=== PATIENT | male | born 1940 | race Caucasian/White ===

== ENCOUNTER → 2018-07-04 09:28 | Outpatient (CLI) | payer OTHER, SELFPAY ==
--- NOTE | 2018-07-04 | DI.RAD.S_ITS ---
PROCEDURE: XR HAND LT 2V INDICATIONS: OSTEOARTHRITUS TECHNIQUE: 3 views of the hand(s) acquired. COMPARISON: [facility], CR, XR HAND RT 2V, 07/04/2018, 9:14. [facility], CR, HAND 3V LEFT, 08/03/2011, 12:29. FINDINGS: Bones: No fractures or dislocations. There is moderate to severe IP and DIP joints space narrowing most notable at the first, second and third digits. First MCP joint space narrowing is also present. There is subchondral sclerosis and periarticular osteophytes also present. There has been mild interval progression compared to prior exam. Small areas of subchondral cyst versus erosions are noted. Although this left and right sides are affected, the left side is slightly less severe. Soft tissues: No suspicious soft tissue calcifications. IMPRESSION: IP and DIP joints space narrowing, subchondral sclerosis and periarticular osteophytes as above most suggestive of arthritis. Mild interval progression is noted. Dictated by: Huyen Kruse M.D. on 07/04/2018 at 13:11 Approved by: Huyen Kruse M.D. on 07/04/2018 at 13:15
--- NOTE | 2018-07-04 | DI.RAD.S_ITS ---
PROCEDURE: XR HAND RT 2V INDICATIONS: OSTEOARTHRITUS TECHNIQUE: 3 views of the hand(s) acquired. COMPARISON: [facility], CR, XR HAND LT 2V, 07/04/2018, 9:14. [facility], CR, HAND 3V RIGHT, 08/03/2011, 12:29. [facility], CR, HAND 3V LEFT, 08/03/2011, 12:29. FINDINGS: Bones: No fractures or dislocations. There is severe PIP and IP joint space narrowing most notable in the first, second and third digits, progressive compared to prior exam. Areas of subchondral sclerosis and periarticular osteophytes are present most significant in the second and third digits. First MCP joint space narrowing is also present, slightly progressive. There is end plate irregularity particularly of the second DIP joint suggestive of small subchondral cysts versus erosions, progressive compared to prior exam. Overall appearance appears slightly worse when compared to the left side. Soft tissues: No suspicious soft tissue calcifications. IMPRESSION: Degenerative changes particularly within the first and third digits, progressive compared to prior exam and most consistent with arthritis. Dictated by: Huyen Kruse M.D. on 07/04/2018 at 13:08 Approved by: Huyen Kruse M.D. on 07/04/2018 at 13:11
== END ==
PROVIDERS: PCP Physician Assistant; Visit Provider Physician Assistant
DX: M19.041 Primary osteoarthritis, right hand (principal); M19.042 Primary osteoarthritis, left hand
CPT/HCPCS: 73120

== ENCOUNTER → 2020-03-30 15:02 | Outpatient (CLI) | payer MEDICARE, SELFPAY ==
--- NOTE | 2020-03-30 | DI.US.S_ITS ---
PROCEDURE: US PERIPH VENOUS LOW EXTREM LT INDICATIONS: LEFT LEG PAIN AND SWELLING TECHNIQUE: Real-time imaging, as well as color and pulse Doppler interrogation, were performed of the lower extremity deep veins from the inguinal ligament to the popliteal fossa. COMPARISON: None. FINDINGS: The common femoral, femoral and popliteal veins are normally compressible, and free of intraluminal thrombus. Color and pulse Doppler demonstrate normal phasic intraluminal flow. There is normal augmentation response to distal compression maneuver. IMPRESSION: No DVT found. Dictated by: Krystian Camp M.D. on 03/30/2020 at 16:16 Approved by: Krystian Camp M.D. on 03/30/2020 at 16:16
== END ==
PROVIDERS: PCP Physician Assistant; Referring Provider Physician Assistant; Visit Provider Physician Assistant
DX: M79.605 Pain in left leg (principal); M79.89 Other specified soft tissue disorders
CPT/HCPCS: 93971

== ENCOUNTER → 2020-04-28 10:45 | Outpatient (CLI) | payer MEDICARE, SELFPAY ==
[2020-04-28 11:55] LABS: Add Manual Diff / Slide Review NO; Basophils Absolute Auto 100 /uL (0-100); Basophils Percent Auto 1.1 % (0-2); Eosinophils Absolute Auto 200 /uL (0-450); Hematocrit 39.6 % (41-53); Hemoglobin 13.5 g/dL (13.5-17.5); Lymphocytes Absolute Auto 2700 /uL (1100-4500); Lymphocytes Percent Auto 39.6 % (25-40); Mean Corpuscular Hemoglobin 32.4 PG (26-34); Mean Corpuscular Volume 95.1 fL (80-100); Monocytes Absolute Auto 800 /uL (0-900); Monocytes Percent Auto 12.1 % (3-14); Neutrophils Absolute Auto 3100 /uL (1500-7000); Neutrophils Percent Auto 44.2 % (50-75); Platelet Count 189 X10^3/uL (150-400); Red Blood Cell Count 4.16 X10^6/uL (4.5-5.9); Red Cell Distribution Width 14.3 % (11.6-14.8); White Blood Cell Count 6.9 X10^3/uL (4.5-11.0)
[2020-04-28 12:06] LABS: D Dimer < 200 ng/mL (<230)
[2020-04-28 12:48] LABS: Alanine Aminotransferase 39 IU/L (<50); Albumin 4.3 g/dL (3.5-5.0); Albumin Globulin Ratio 1.5 (1.0-2.8); Alkaline Phosphatase 83 U/L (38-126); Aspartate Aminotransferase 41 IU/L (17-59); BUN Creatinine Ratio 21.1 (6-22); Bilirubin Total 0.6 mg/dL (0.2-1.3); Blood Urea Nitrogen 15 mg/dL (9-20); Calcium 9.2 mg/dL (8.4-10.2); Carbon Dioxide 25 mmol/L (22-32); Chloride 103 mmol/L (98-107); Estimated Glomerular Filt Rate > 60.0 mL/min (>60); Globulin 2.9 g/dL (1.7-4.1); Glucose 82 mg/dL (80-110); HEMOLYSIS < 15 (0-50); Potassium 4.3 mmol/L (3.4-5.1); Sodium 135 mmol/L (137-145); Total Protein 7.2 g/dL (6.3-8.2)
[2020-04-28 13:08] LABS: TSH w/ Reflex to FT4 0.99 uIU/mL (0.47-4.68)
[2020-04-28 13:27] LABS: Vitamin B12 775 pg/mL (239-931)
[2020-04-29 04:36] LABS: RPR Screen Non Reactive (Non Reactive)
[2020-04-30 09:39] LABS: Alpha-1-Globulin 0.2 g/dL (0.0-0.4); Alpha-2-Globulin 0.8 g/dL (0.4-1.0); Gamma Globulin 1.1 g/dL (0.4-1.8); Globulin Total 2.8 g/dL (2.2-3.9); Protein, Total 6.8 g/dL (6.0-8.5)
== END ==
PROVIDERS: PCP Internal Medicine; Referring Provider Internal Medicine; Visit Provider Internal Medicine
DX: R60.9 Edema, unspecified (principal); R41.3 Other amnesia
CPT/HCPCS: 36415; 80053; 82607; 84155; 84165; 84443; 85025; 85379; 86592

== ENCOUNTER → 2020-08-07 07:02 | Outpatient (CLI) | payer MEDICARE, SELFPAY ==
[2020-08-07 07:13] LABS: Bacteria Urine None Seen; RBC Urine None Seen (0-5/HPF); WBC Urine None Seen (0-5/HPF)
[2020-08-07 07:36] LABS: Add Manual Diff / Slide Review NO; Basophils Absolute Auto 100 /uL (0-100); Basophils Percent Auto 2.2 % (0-2); D Dimer 212 ng/mL (<230); Eosinophils Absolute Auto 200 /uL (0-450); Eosinophils Percent Auto 3.4 % (2-4); Hemoglobin 14.1 g/dL (13.5-17.5); Lymphocytes Absolute Auto 2500 /uL (1100-4500); Lymphocytes Percent Auto 38.3 % (25-40); Mean Corpuscular HGB Conc 33.7 % (30-36); Mean Corpuscular Hemoglobin 32.2 PG (26-34); Mean Corpuscular Volume 95.7 fL (80-100); Monocytes Absolute Auto 700 /uL (0-900); Monocytes Percent Auto 10.4 % (3-14); Neutrophils Absolute Auto 3000 /uL (1500-7000); Neutrophils Percent Auto 45.7 % (50-75); Platelet Count 190 X10^3/uL (150-400); Red Blood Cell Count 4.39 X10^6/uL (4.5-5.9); Red Cell Distribution Width 14.7 % (11.6-14.8); White Blood Cell Count 6.5 X10^3/uL (4.5-11.0)
[2020-08-07 07:46] LABS: Alanine Aminotransferase 51 IU/L (<50); Albumin 4.3 g/dL (3.5-5.0); Albumin Globulin Ratio 1.3 (1.0-2.8); Alkaline Phosphatase 85 U/L (38-126); Aspartate Aminotransferase 48 IU/L (17-59); BUN Creatinine Ratio 21.3 (6-22); Bilirubin Total 0.9 mg/dL (0.2-1.3); Blood Urea Nitrogen 16 mg/dL (9-20); C-Reactive Protein Quant < 0.5 mg/dL (<1.0); Calcium 9.4 mg/dL (8.4-10.2); Carbon Dioxide 25 mmol/L (22-32); Chloride 107 mmol/L (98-107); Estimated Glomerular Filt Rate > 60.0 mL/min (>60); Globulin 3.4 g/dL (1.7-4.1); Glucose 123 mg/dL (80-110); HEMOLYSIS < 15 (0-50); Potassium 4.3 mmol/L (3.4-5.1); Sodium 138 mmol/L (137-145); Total Protein 7.7 g/dL (6.3-8.2)
[2020-08-07 07:57] LABS: Erythrocyte Sedimentation Rate 8 MM/HR (0-15)
[2020-08-07 09:29] LABS: Appearance Urine UA CLEAR; Bilirubin Urine UA NEGATIVE (NEGATIVE); Color Urine UA YELLOW; Glucose Urine UA NEGATIVE (Negative); Ketones Urine UA NEGATIVE (NEGATIVE); Leukocyte Esterase Urine UA NEGATIVE (NEGATIVE); Nitrite Urine UA NEGATIVE (Negative); Occult Blood Urine UA NEGATIVE (Negative); Protein Urine UA NEGATIVE (Negative); Specific Gravity Urine UA 1.025 (1.000-1.035); Urobilinogen Urine UA 0.2 E.U./dL (0.2)
[2020-08-07 09:50] LABS: Culture Indicated Urine Cult Not Indicated; Urine Comments Microscopic Normal
[2020-08-08 07:49] LABS: PSA Ultrasensitive <0.014 ng/mL (0.000-4.000)
== END ==
PROVIDERS: PCP Internal Medicine; Referring Provider Internal Medicine; Visit Provider Internal Medicine
DX: R10.32 Left lower quadrant pain (principal)
CPT/HCPCS: 36415; 80053; 81001; 84153; 85025; 85379; 85651; 86140

== ENCOUNTER 2020-08-07 15:54 | Emergency (ER) | payer MEDICARE, SELFPAY ==
[2020-08-07] VITALS (9 sets, daily range): BP systolic 144–181; BP diastolic 65–76; PULSE 54–64; RESP 14–24; TEMP 36.6; O2SAT 95–99; BMI 31.0
--- NOTE | 2020-08-07 16:14 | DI.RAD.S_ITS ---
PROCEDURE: XR CHEST 1V INDICATIONS: CHEST PAIN TECHNIQUE: One view of the chest was acquired. COMPARISON: [facility], CR, XR CHEST 1 VIEW, 01/12/2020, 6:19. FINDINGS: Surgical changes and devices: None. Lungs and pleura: Interstitial prominence. No pleural effusions or pneumothorax. Mediastinum: Mediastinal contours appear normal. Heart is enlarged. Bones and chest wall: No suspicious bony lesions. Overlying soft tissues appear unremarkable. IMPRESSION: 1. Cardiomegaly. 2. Interstitial prominence which could be due to pulmonary edema or atypical/viral pneumonia. Dictated by: Olivia Gastelum MD, PhD on 08/07/2020 at 17:02 Approved by: Olivia Gastelum MD, PhD on 08/07/2020 at 17:04
[2020-08-07 16:23] LABS: Add Manual Diff / Slide Review NO; Basophils Absolute Auto 100 /uL (0-100); Basophils Percent Auto 1.1 % (0-2); Eosinophils Absolute Auto 200 /uL (0-450); Eosinophils Percent Auto 2.1 % (2-4); Hematocrit 41.5 % (41-53); Lymphocytes Absolute Auto 3100 /uL (1100-4500); Lymphocytes Percent Auto 37.1 % (25-40); Mean Corpuscular HGB Conc 33.7 % (30-36); Mean Corpuscular Hemoglobin 32.3 PG (26-34); Mean Corpuscular Volume 95.9 fL (80-100); Monocytes Absolute Auto 900 /uL (0-900); Monocytes Percent Auto 10.6 % (3-14); Neutrophils Absolute Auto 4100 /uL (1500-7000); Neutrophils Percent Auto 49.1 % (50-75); Platelet Count 187 X10^3/uL (150-400); Red Blood Cell Count 4.33 X10^6/uL (4.5-5.9); Red Cell Distribution Width 14.5 % (11.6-14.8); White Blood Cell Count 8.4 X10^3/uL (4.5-11.0)
[2020-08-07 16:27] LABS: Alanine Aminotransferase 54 IU/L (<50); Albumin 4.4 g/dL (3.5-5.0); Albumin Globulin Ratio 1.4 (1.0-2.8); Alkaline Phosphatase 80 U/L (38-126); Aspartate Aminotransferase 53 IU/L (17-59); BUN Creatinine Ratio 19.8 (6-22); Bilirubin Total 0.7 mg/dL (0.2-1.3); Blood Urea Nitrogen 19 mg/dL (9-20); Carbon Dioxide 24 mmol/L (22-32); Chloride 105 mmol/L (98-107); Creatine Kinase 161 U/L (55-170); Estimated Glomerular Filt Rate > 60.0 mL/min (>60); Globulin 3.2 g/dL (1.7-4.1); Glucose 119 mg/dL (80-110); HEMOLYSIS < 15 (0-50); Lipase 66 U/L (23-300); Potassium 3.8 mmol/L (3.4-5.1); Sodium 137 mmol/L (137-145); Total Protein 7.6 g/dL (6.3-8.2)
[2020-08-07] MEDS: SODIUM CHLORIDE 0.9% 1,000 ML 150 ML IV (16:28)
--- NOTE | 2020-08-07 16:29 | ED.CHESTPAIN ---
HPI - Chest Pain General Chief Complaint: Chest Pain Stated Complaint: chest pains Time Seen by Provider: 08/07/20 16:06 Source: patient Mode of arrival: Ambulatory Limitations: no limitations History of Present Illness HPI narrative: The patient is a 80-year-old male with history of coronary artery disease presenting with right-sided chest pain. He says he has taken 2 doses of Augmentin for what I gather is diverticulitis but he does not know the words he says he has a dull aching pain on the right side of his chest which comes and goes lasting briefly. He denies any shortness of breath or heart palpitations. It started this morning, he thinks it is related to the Augmentin has been taking. MD complaint: chest pain Duration: intermittent Pain radiation: none Relieving factors: nothing Related Data Home Medications Medication Instructions Recorded Confirmed Antihistamine 10 mg PO DAILY 11/04/19 ascorbic acid (vitamin C) 1,000 mg 1 gram PO DAILY tab 11/04/19 11/04/19 tablet aspirin 81 mg tablet,delayed 81 mg PO DAILY 11/04/19 11/04/19 release cholecalciferol (vitamin D3) 25 25 mcg PO DAILY 11/04/19 11/04/19 mcg (1,000 unit) capsule glucosamine-chondroitin 250 mg-200 1 tab PO QPC tab 11/04/19 11/04/19 mg tablet bhcxdfgkltsw-sfkacluv-ogqtab tablet 1 tab PO DAILY 11/04/19 11/04/19 nitroglycerin 0.4 mg sublingual 0.4 mg SL ONCE 11/04/19 11/04/19 tablet Previous Rx's Medication Instructions Recorded amoxicillin 875 mg-potassium 1 tab PO BID #10 tab 11/04/19 clavulanate 125 mg tablet trazodone 50 mg tablet 50 mg PO BEDTIME PRN #90 tab 12/05/19 atorvastatin 40 mg tablet 40 mg PO DAILY #90 tab 12/20/19 metoprolol succinate 25 mg 25 mg PO DAILY #90 tab 12/20/19 tablet,extended release 24 hr Allergies Allergy/AdvReac Type Severity Reaction Status Date / Time meclizine [From Antivert] Allergy Verified 08/07/20 16:07 Review of Systems Review of Systems Narrative: GENERAL: Denies chills, fatigue, malaise, fever, sweats, travel HEENT: Denies sinus pain, ear pain, sore throat, difficulty swallowing, neck pain RESPIRATORY: Denies dyspnea, cough, wheezing, hemoptysis, sputum. CARDIOVASCULAR: Denies chest pain, palpitations, orthopnea, edema GASTROINTESTINAL: Denies nausea, vomiting, abdominal pain, diarrhea, constipation, melena. : Denies dysuria, frequency, incontinence, hematuria, urinary retention, flank pain. MUSCULOSKELETAL: Denies weakness, joint pain, or bony pain SKIN: No rash, no erythema, no pruritus NEUROLOGIC: Denies weakness, dizziness, headache, numbness, change in speech, confusion PSYCHIATRIC: No concerning psychosocial issues. 12 point review of systems is negative except for those stated above and HPI Patient History Medical History (Updated 08/07/20 @ 19:03 by Nia Womack DO) Chicken pox (~1943) Coronary artery disease Gout (~1969) Hearing loss Hemorrhoids History of heart attack Hyperlipidemia Measles (~1943) Mumps (~1943) Prostate cancer Skin cancer, basal cell Skin lesion Vision disorder Surgical History (Updated 11/14/19 @ 19:30 by Katie Chinchilla) Anesthesia Back pain with history of spinal surgery History of coronary artery stent placement History of ear surgery (~04/2019) History of prostatectomy History of surgery Family History (Updated 11/14/19 @ 19:30 by Katie Chinchilla) Mother Stroke Father No problems noted. Social History Smoking Status: Never smoker second hand exposure: No alcohol intake: never substance use type: does not use Smoking Status: Never smoker alcohol intake frequency: a few times a week Substance Use Type: does not use Exam Initial Vital Signs Initial Vital Signs: Vital Signs Temperature 97.8 F 08/07/20 16:07 Pulse Rate 61 08/07/20 16:07 Respiratory Rate 24 08/07/20 16:07 Blood Pressure 181/76 H 08/07/20 16:07 Pulse Oximetry 96 08/07/20 16:07 GENERAL: Pleasant alert well-appearing male and in no acute distress. HEENT: Head atraumatic,EOMI, pupils reactive, face symmetric, moist mucous membranes CARDIOVASCULAR: Regular rate and rhythm without murmurs, rubs or gallops. Pain is not reproducible with palpation RESPIRATORY: Breath sounds equal bilaterally, no wheezes rales or rhonchi. ABDOMEN: Soft, nontender. Normoactive bowel sounds all 4 quadrants. No guarding or rebound. : No CVA tenderness EXTREMITIES: Normal range of motion, no clubbing or edema. Neurovascularly intact NEUROLOGICAL: Alert and oriented x4.Normal gait and speech. Cranial nerves II through XII grossly intact. SKIN: Warm, dry, no laceration, no petechiae, no rashes or lesions. Course Orders Ordered: ED Orders 08/07/20 15:59 EKG-12 Lead Stat 08/07/20 16:10 Complete Blood Count AUTO DIFF Stat Comprehensive Metabolic Panel Stat Lipase Stat Troponin & CK Cardiac Panel Stat 08/07/20 16:14 XR chest 1V Stat 08/07/20 17:25 US periph venous low extrem lt Stat Sodium Chloride (Normal Saline 0.9%) 1,000 mls @ 150 mls/hr IV CONT MITA Last Admin: 08/07/20 16:28 Dose: 150 mls/hr Documented by: NICOLE Vital Signs Vital signs: Vital Signs - 8 hr 08/07/20 16:07 08/07/20 16:40 08/07/20 17:00 Temperature 97.8 F Pulse Rate 61 55 L 55 L Respiratory Rate 24 24 22 Blood Pressure 181/76 H Pulse Oximetry 96 96 97 08/07/20 17:01 08/07/20 17:30 08/07/20 17:31 Temperature Pulse Rate 55 L 64 62 Respiratory Rate 21 20 18 Blood Pressure 149/65 H 159/68 H Pulse Oximetry 95 99 99 08/07/20 18:00 08/07/20 18:01 Temperature Pulse Rate 56 L 63 Respiratory Rate 14 20 Blood Pressure 160/68 H Pulse Oximetry 97 97 MDM - Chest Pain Lab Data Attestation: I reviewed the patient's lab results. Result diagrams: 08/07/20 16:10 08/07/20 16:10 Labs: Lab Results 08/07/20 08/07/20 Range/Units 16:10 16:10 WBC 8.4 (4.5-11.0) X10^3/uL RBC 4.33 L (4.5-5.9) X10^6/uL Hgb 14.0 (13.5-17.5) g/dL Hct 41.5 (41-53) % MCV 95.9 (80-100) fL MCH 32.3 (26-34) PG MCHC 33.7 (30-36) % RDW 14.5 (11.6-14.8) % Plt Count 187 (150-400) X10^3/uL Neut % (Auto) 49.1 L (50-75) % Lymph % (Auto) 37.1 (25-40) % [place] % (Auto) 10.6 (3-14) % Eos % (Auto) 2.1 (2-4) % Baso % (Auto) 1.1 (0-2) % Neut # (Auto) 4100 (8698-9060) /uL Lymph # (Auto) 3100 (1969-2126) /uL [place] # (Auto) 900 (0-900) /uL Eos # (Auto) 200 (0-450) /uL Baso # (Auto) 100 (0-100) /uL Sodium 137 (137-145) mmol/L Potassium 3.8 (3.4-5.1) mmol/L Chloride 105 (98-107) mmol/L Carbon Dioxide 24 (22-32) mmol/L BUN 19 (9-20) mg/dL Creatinine 0.96 (0.66-1.25) mg/dL Estimated GFR > 60.0 (>60) mL/min BUN/Creatinine Ratio 19.8 (6-22) Glucose 119 H (80-110) mg/dL Calcium 9.0 (8.4-10.2) mg/dL Total Bilirubin 0.7 (0.2-1.3) mg/dL AST 53 (17-59) IU/L ALT 54 H (<50) IU/L Alkaline Phosphatase 80 (38-126) U/L Total Creatine Kinase 161 (55-170) U/L CK-MB (CK-2) 2.86 H (<2.37) ng/mL CK-MB (CK-2) Rel Index 1.8 (1.5-5.0) % Troponin I < 0.012 (0.01-0.034) ng/mL Total Protein 7.6 (6.3-8.2) g/dL Albumin 4.4 (3.5-5.0) g/dL Globulin 3.2 (1.7-4.1) g/dL Albumin/Globulin Ratio 1.4 (1.0-2.8) Lipase 66 (23-300) U/L Imaging Data Chest x-ray: Radiologist's Impression: PROCEDURE: XR CHEST 1V INDICATIONS: CHEST PAIN TECHNIQUE: One view of the chest was acquired. COMPARISON: [facility], CR, XR CHEST 1 VIEW, 01/12/2020, 6:19. FINDINGS: Surgical changes and devices: None. Lungs and pleura: Interstitial prominence. No pleural effusions or pneumothorax. Mediastinum: Mediastinal contours appear normal. Heart is enlarged. Bones and chest wall: No suspicious bony lesions. Overlying soft tissues appear unremarkable. IMPRESSION: 1. Cardiomegaly. 2. Interstitial prominence which could be due to pulmonary edema or atypical/viral pneumonia. Dictated by: Olivia Gastelum MD, PhD on 08/07/2020 at 17:02 ECG Data Attestation: I personally reviewed and interpreted this ECG as follows: Prior ECG tracings: available for review Interpretation: Normal sinus rhythm rate 59 p.r. interval 312 QRS [address] changes similar to previous EKG first-degree AV block was also noted in 2015 MDM Narrative Medical decision making narrative: The patient has been having swelling of the left leg as well DVT study is negative. Pain is been off and on lasting only for seconds. Pain is been ongoing throughout the day troponin is negative. He is taking Augmentin for colitis. At this time I recommend he continue taking Augmentin he does not have any anaphylactic or adverse reactions to the medication. I did discuss with him that he needs to return if his pain is worsened Discharge Plan Departure Patient Disposition: Home Clinical Impression: Atypical chest pain Activity Restrictions/Additional Instructions: *You have been diagnosed with atypical chest pain *What to do: At this time continue your antibiotic it is not related to your chest pain. At this time I do not believe her chest discomfort to be related to your heart however if it should change or worsen in any way please return to the ER without hesitation *Continue to take medications as directed *Follow up with your primary care provider in 2-3 days *Return to ER if you should have increasing chest pain or change in chest pain, shortness of breaths or any new, worsening or concerning symptoms Prescriptions: No Action trazodone 50 mg tablet 50 mg PO BEDTIME PRN (Reason: insomnia) Qty: 90 RF: 1 atorvastatin 40 mg tablet 40 mg PO DAILY Qty: 90 RF: 3 metoprolol succinate 25 mg tablet extended release 24 hr 25 mg PO DAILY Qty: 90 RF: 3 aspirin [Adult Aspirin Regimen] 81 mg tablet,delayed release (DR/EC) 81 mg PO DAILY RF: 0 haalgoiyngui-kfefccul-tmgzoo Tablet 1 tab PO DAILY RF: 0 glucosamine-chondroitin [Osteo Bi-Flex] 250-200 mg tablet 1 tab PO QPC RF: 0 cholecalciferol (vitamin D3) 25 mcg (1,000 unit) capsule 25 mcg PO DAILY RF: 0 ascorbic acid (vitamin C) 1,000 mg tablet 1 gram PO DAILY RF: 0 Antihistamine 10 mg PO DAILY RF: 0 nitroglycerin 0.4 mg tablet, sublingual 0.4 mg SL ONCE RF: 0 amoxicillin-pot clavulanate 875-125 mg tablet 1 tab PO BID Qty: 10 RF: 0 Referrals: Diane Archer MD [Primary Care Provider] -
[2020-08-07 16:39] LABS: Troponin I < 0.012 ng/mL (0.01-0.034)
[2020-08-07 16:42] LABS: CKMB % Relative Index 1.8 % (1.5-5.0); Creatine Kinase MB 2.86 ng/mL (<2.37)
--- NOTE | 2020-08-07 16:43 | PC.NURSE ---
Left calf noted to have swelling. Patient states has been this way for a few months, it goes worse the higher up you go. Patient also states he has an ultrasound later this week to check for blood clot in said leg. Provider notified and aware.
--- NOTE | 2020-08-07 17:25 | DI.US.S_ITS ---
PROCEDURE: [facility] VENOUS LOW EXTREM LT INDICATIONS: swelling TECHNIQUE: Real-time imaging, as well as color and pulse Doppler interrogation, were performed of the lower extremity deep veins from the inguinal ligament to the popliteal fossa. COMPARISON: [facility], [facility] VENOUS LOW EXTREM LT, 03/30/2020, 15:23. FINDINGS: The common femoral, femoral and popliteal veins are normally compressible, and free of intraluminal thrombus. Color and pulse Doppler demonstrate normal phasic intraluminal flow. There is normal augmentation response to distal compression maneuver. IMPRESSION: No DVT in the left lower extremity. Dictated by: Alex Lerma M.D. on 08/07/2020 at 18:55 Approved by: Alex Lerma M.D. on 08/07/2020 at 19:07
== END 2020-08-07 19:16 | disposition home or self-care (01) ==
PROVIDERS: Emergency Provider Emergency Medicine; PCP Internal Medicine
DX: R07.89 Other chest pain (principal); R10.32 Left lower quadrant pain; R22.42 Localized swelling, mass and lump, left lower limb
CPT/HCPCS: 36415; 71045; 80053; 81001; 81003; 82550; 82553; 83690; 84153; 84484; 85025; 85379; 85651; 86140; 93005; 93971; 96360; 96361; 99283; 99284

== ENCOUNTER → 2020-08-10 12:26 | Outpatient (CLI) | payer MEDICARE, SELFPAY ==
--- NOTE | 2020-08-10 | DI.CT.S_ITS ---
PROCEDURE: CT LE LT W CON INDICATIONS: Left thigh swelling TECHNIQUE: After the administration of intravenous contrast, 3 mm axial sections acquired of the lower extremities bilaterally, with targeted evaluation to include extension into the lower pelvis, where multiple surgical clips can be seen., with coronal and sagittal reformats. COMPARISON: [facility], CT, CT ABDOMEN PELVIS W CON, 08/10/2020, 13:17. [facility], US, US PERIPH VENOUS LOW EXTREM LT, 08/07/2020, 17:35. FINDINGS: Image quality: Excellent. Bones: No evidence of infection or neoplastic process Soft tissues: . Normal deep and superficial veins are seen over the lower extremities bilaterally. There is no evidence of DVT. No soft tissue mass or inflammation or abnormal fluid collection is found. No joint effusion or synovial protrusion is seen. IMPRESSION: A source of reported cord like abnormality palpable at the medial left lower extremity near the knee is not identified. The patient was unable to locate this particular palpable abnormality today. By this examination there is no suspicion for infection or neoplasm, or venous thrombosis. Dictated by: Krystian Camp M.D. on 08/10/2020 at 16:20 Approved by: Krystian Camp M.D. on 08/10/2020 at 16:23
--- NOTE | 2020-08-10 14:05 | DI.CT.S_ITS ---
PROCEDURE: CT ABDOMEN PELVIS W CON INDICATIONS: Left lower quadrant pain TECHNIQUE: After the administration of oral and intravenous contrast, 5 mm thick sections acquired from the diaphragms to the symphysis. 5 mm thick coronal and sagittal reformats were performed. For radiation dose reduction, the following was used: automated exposure control, adjustment of mA and/or kV according to patient size. COMPARISON: [facility], CT, CT ABDOMEN PELVIS WITH CONTRAST, 02/20/2020, 18:42. [facility], CT, CT ABDOMEN PELVIS WITH CONTRAST, 05/20/2020, 10:47. FINDINGS: Image quality: Excellent. ABDOMEN: Lung bases: Lung bases are clear. Heart size is normal. Solid organs: Liver is normal in size and enhancement. Gallbladder appears normal . Biliary system is non-dilated. Pancreas enhances normally. Spleen is normal in size and enhancement. No adrenal nodules. Kidneys are normal in size and enhancement, without hydronephrosis. Peritoneum and bowel: Stomach, small bowel, and colon loops are normal in caliber and wall thickness. No free fluid or air. Nodes and vessels: No retroperitoneal or mesenteric adenopathy. Aorta and inferior vena cava are normal in caliber. Miscellaneous: No ventral hernias. PELVIS: Genitourinary: Bladder wall thickness is normal. Miscellaneous: No inguinal hernias or adenopathy. Postsurgical change of prostatectomy noted, scattered pelvic surgical clips as expected. Bones: No suspicious bony lesions. No vertebral body compression fractures. IMPRESSION: No evidence of recurrent neoplasm, no adenopathy seen. No sign of distant metastatic disease in this patient with prior prostatectomy. Dictated by: Krystian Camp M.D. on 08/10/2020 at 16:23 Approved by: Krystian Camp M.D. on 08/10/2020 at 16:24
== END ==
PROVIDERS: PCP Internal Medicine; Referring Provider Internal Medicine; Visit Provider Internal Medicine
DX: R10.32 Left lower quadrant pain (principal)
CPT/HCPCS: 73701; 74177; Q9967

== ENCOUNTER → 2020-09-07 19:26 | Outpatient (ROUT) | payer MEDICARE, SELFPAY ==
[2020-09-07 19:58] LABS: Alanine Aminotransferase 47 IU/L (<50); Aspartate Aminotransferase 49 IU/L (17-59); BUN Creatinine Ratio 22.2 (6-22); Blood Urea Nitrogen 16 mg/dL (9-20); Calcium 9.2 mg/dL (8.4-10.2); Carbon Dioxide 25 mmol/L (22-32); Chloride 109 mmol/L (98-107); Estimated Glomerular Filt Rate > 60.0 mL/min (>60); Gamma Glutamyl Transpeptidase 33 U/L (15-73); Glucose 102 mg/dL (80-110); HEMOLYSIS < 15 (0-50); Potassium 4.3 mmol/L (3.4-5.1); Sodium 141 mmol/L (137-145)
[2020-09-07 20:06] LABS: NT-proBNP (BNP-Adult 18+) 135 pg/mL (<450)
== END ==
PROVIDERS: PCP Internal Medicine; Visit Provider Internal Medicine
DX: R60.9 Edema, unspecified (principal); I10 Essential (primary) hypertension; R74.01 Elevation of levels of liver transaminase levels
CPT/HCPCS: 80048; 82977; 83880; 84450; 84460

== ENCOUNTER → 2021-06-08 13:31 | Outpatient (CLI) | payer OTHER, SELFPAY ==
--- NOTE | 2021-06-08 | DI.ECHO.S_ITS ---
[facility] +---------+ [facility] +---------+ : : [address] : [address] : : : : [id number] : : : : Phone: [phone]+ Echocardiogram Report + + :Name: SERG KNIGHT Study Date: 06/08/2021 Height: 68.5 in: :[facility] ReadingLocation: Weight: 200 lb : : Gender: Male BSA: 2.1 m2 : :: 1940 Age: 80 yrs BP: 146/74 mmHg: :Reason For Study: ATHEROSCLEROTIC HEART DISEASE : :Ordering Physician: STEPHANIE, : :LEONID CONNOR Performed By: Sarah Shetyt : :Referring: LEONID BROWN : + + Interpretation Summary Sinus bradycardia. Heart rate is 48-55 bpm during exam. Normal LV size, wall thickness, wall motion and LV systolic function. Stage I diastolic dysfunction. Mild LA enlargement and possible PFO is present. Aortic sclerosis without associated regurgitation or stenosis. Borderline dilated aortic root (3.9 cm). Compared to prior study 01/13/2020 no changes have occurred. Procedure: A two-dimensional transthoracic echocardiogram with color flow and Doppler was performed. The study quality was technically adequate. The patient was in sinus bradycardia with heart rates between 48-55 bpm during the exam. Left Ventricle: The left ventricle is normal in size. Left ventricular wall thickness is at the upper limits of normal. The ejection fraction is estimated to be 60-65%. Right Ventricle: The right ventricle is normal in size and function. Atria: The left atrium is mildly dilated. Right atrial size is normal. A patent foramen ovale is suspected. Mitral Valve: The mitral valve leaflets appear mildly thickened, but open well. There is mild mitral regurgitation. Aortic Valve: There is mild aortic valve sclerosis. The aortic valve is trileaflet. The aortic valve is slightly calcified. There is no aortic valve stenosis. No aortic regurgitation is present. Tricuspid Valve: The tricuspid valve is normal in structure and function. There is mild tricuspid regurgitation. The right ventricular systolic pressure is estimated to be at least 19 mmHg based on an estimated right atrial pressure of 3 mm Hg. Pulmonic Valve: The pulmonic valve leaflets are thin and pliable; valve motion is normal. There is mild pulmonic regurgitation. Great Vessels: The aortic root is borderline dilated. The ascending aorta is normal in size. The IVC is of normal diameter and collapses greater than 50% with a sniff. This suggests a low right atrial pressure of 3 mm Hg. Pericardium/ Pleura There is no pericardial effusion. There is no pleural effusion. MMode/2D Measurements & Calculations LVIDd: 4.3 cm LVOT diam: 2.2 cm LVIDs: 2.9 cm Ao root diam: 3.9 cm FS: 32.2 % asc Aorta Diam: 3.7 cm IVSd: 1.1 cm Ao Arch Diam (Prox Trans): 2.9 cm LVPWd: 1.1 cm LV gonsalves. diameter/BSA (cm/m^2): 2.1 LV sys. diameter/BSA (cm/m^2): 1.4 LA A2 area: 28.1 cm2 RA long axis: 6.4 cm LA A4 area: 23.2 cm2 RA area: 22.2 cm2 LA length (vol): 6.9 cm RA vol: 64.8 ml LA vol: 80.4 ml RA : 31.6 ml/m2 LA vol index: 39.1 ml/m2 IVC diam: 1.7 cm RVD1 (basal): 3.8 cm TAPSE: 2.0 cm Doppler Measurements & Calculations Ao V2 max: 146.7 cm/sec LVOT Max Vin: 107.9 cm/sec Ao V2 mean: 108.4 cm/sec LV V1 max P.7 mmHg Ao max P.6 mmHg LV V1 VTI: 24.5 cm Ao mean P.1 mmHg ANTONY(I,D): 2.6 cm2 Ao V2 VTI: 35.9 cm ANTONY(V,D): 2.8 cm2 sev ratio: 0.68 ANTONY indexed to BSA (cm^2/m^2): 1.3 MV E max vin: 71.9 cm/sec TR max vin: 201.4 cm/sec MV A max vin: 72.3 cm/sec TR max P.2 mmHg MV E/A: 0.99 PA V2 max: 84.2 cm/sec Med Peak E' Vin: 4.6 cm/sec PA V2 mean: 57.1 cm/sec E/E' med: 15.7 PA mean P.5 mmHg Lat Peak E' Vin: 7.1 cm/sec PA pr(Accel): 24.2 mmHg E/E' lat: 10.2 E/e' average: 12.9 MV dec time: 0.26 sec SV(LVOT): 93.5 ml Electronically signed by: Kaela Montenegro M.D. on [place] Physician:06/09/2021 02:27 AM
== END ==
PROVIDERS: PCP Family Medicine; Referring Provider Registered Nurse; Visit Provider Registered Nurse
DX: I25.10 Atherosclerotic heart disease of native coronary artery without angina pectoris (principal); Z95.5 Presence of coronary angioplasty implant and graft; I10 Essential (primary) hypertension; E78.49 Other hyperlipidemia; R00.1 Bradycardia, unspecified; I51.7 Cardiomegaly
CPT/HCPCS: 93306

== ENCOUNTER → 2022-01-31 13:24 | Outpatient (CLI) | payer OTHER, SELFPAY ==
--- NOTE | 2022-01-31 | DI.ECHO.S_ITS ---
[facility] +---------+ [facility] +---------+ : : [address] : : [address] : [address] : : : : [id number] : : : : Phone: [phone] : [phone]+ Echocardiogram Report + + :Name: SERG KNIGHT Study Date: 01/31/2022 Height: 69 in : :[facility] ReadingLocation: Weight: 195 lb : : Gender: Male BSA: 2.0 m2 : :: 1940 Age: 81 yrs BP: 144/75 mmHg: :Reason For Study: EJECTION FRACTION AND WALL MOTION : :Ordering Physician: Sherri WHITINGformed By: Sarah Shetty : :Referring: EVA WHITING : + + Interpretation Summary Limited Echo: 1) Normal left ventricular tihckness, size, and systolic function (EF 60-65%). 2) Septal bounce present. This was present on prior echo as well. 3) Normal right ventricular size and function. 4) There is no pericardial effusion. 5) Compared to the Echo done 05/19/2110/08/2020, no significant change. Procedure: A two-dimensional transthoracic echocardiogram with color flow and Doppler was performed in limited views only to assess Ejection fraction and wall motion.. The study quality was technically adequate. Comparison is made with the echocardiogram of 06/08/2021. The heart rate ranged between 60- 66 bpm during the study. The patient has a paced rhythm. Left Ventricle: The left ventricle is normal in size and wall thickness. The ejection fraction is estimated to be 60-65%. Septal bounce present. Right Ventricle: The right ventricle is normal in size and function. Great Vessels: The IVC is of normal diameter and collapses greater than 50% with a sniff. This suggests a low right atrial pressure of 3 mm Hg. Pericardium/ Pleura There is no pericardial effusion. There is no pleural effusion. MMode/2D Measurements & Calculations LVIDd: 4.8 cm IVC diam: 1.4 cm LVIDs: 3.2 cm FS: 33.1 % IVSd: 0.94 cm LVPWd: 0.99 cm LV gonsalves. diameter/BSA (cm/m^2): 2.4 LV sys. diameter/BSA (cm/m^2): 1.6 RVD1 (basal): 2.9 cm RVD2 (mid): 3.0 cm TAPSE: 1.9 cm Reading Physician:02:40 PM
== END ==
PROVIDERS: PCP Family Medicine; Referring Provider Internal Medicine Cardiovascular Disease; Visit Provider Internal Medicine Cardiovascular Disease
DX: I44.39 Other atrioventricular block (principal); Z95.0 Presence of cardiac pacemaker
CPT/HCPCS: 93307

== ENCOUNTER → 2025-01-08 16:28 | Outpatient (CLI) | payer MEDICARE, SELFPAY ==
--- NOTE | 2025-01-08 | DI.US.S_ITS ---
PROCEDURE: [facility] LOW EXTREM [facility] INDICATIONS: r/o DVT, swelling left leg TECHNIQUE: Real-time imaging, as well as color and pulse Doppler interrogation, were performed of the lower extremity deep veins from the inguinal ligament to the popliteal fossa, with documentation of the visualized calf veins. COMPARISON: [facility], , [facility] EXTREM [facility], 08/07/2020, 17:35. FINDINGS: The common femoral, femoral, popliteal, and the visualized calf veins are normally compressible, and free of intraluminal thrombus. Color and pulse Doppler demonstrate normal phasic intraluminal flow. There is normal augmentation response to distal compression maneuver. There is moderate-severe subcutaneous soft tissue edema. No organized fluid collection seen. In the left proximal to mid thigh medially, there is a hypoechoic lesion with possible peripheral vascularity measuring 2.0 x 1.2 x 0.9 cm. No definite fatty hilum identified. IMPRESSION: No findings of lower extremity deep venous thrombosis. Moderate/severe subcutaneous soft tissue edema without focal fluid collection. Nonspecific oval, 2.0 x 1.2 x 0.9 cm hypoechoic lesion in the medial left proximal/mid thigh with mild peripheral vascularity. No definite fatty hilum. Finding is nonspecific and may represent an inflamed lymph node versus other soft tissue mass. Recommend clinical and imaging follow-up. Dictated by: Darrell Barreto M.D. on 01/08/2025 at 18:08 Approved by: Darrell Barreto M.D. on 01/08/2025 at 18:11
== END ==
PROVIDERS: PCP Family Medicine; Referring Provider Family Medicine; Visit Provider Family Medicine
DX: M79.89 Other specified soft tissue disorders (principal)
CPT/HCPCS: 93971

== ENCOUNTER 2025-03-01 11:50 | Emergency (ER) | payer MEDICARE, SELFPAY ==
[2025-03-01] VITALS (8 sets, daily range): BP systolic 112–132; BP diastolic 61–63; PULSE 59–82; RESP 12–20; TEMP 36.1; O2SAT 96–98; BMI 28.3
--- NOTE | 2025-03-01 12:15 | DI.CT.S_ITS ---
PROCEDURE: CT CERVICAL SPINE WO CON INDICATIONS: trauma TECHNIQUE: Noncontrast 3 mm thick sections acquired from the skull base to the T4 level. Sagittal and coronal reformats were then constructed. For radiation dose reduction, the following was used: automated exposure control, adjustment of mA and/or kV according to patient size. COMPARISON: None. FINDINGS: Image quality: Excellent. Bones: No fractures or dislocations. Visualized superior ribs are intact. There is ossification seen posterior to the C5 and C6 vertebral bodies, as on series 5, image 29. Focal degenerative change is seen involving the C1-C2 interface anteriorly. There is moderate disc space narrowing at C3-C4, with at least moderate disc space narrowing at C4-C5 and C5-C6. Mild disc space narrowing is seen at C6-C7. Multiple levels of facet hypertrophy can be seen, right worse than left. Soft tissues: Prevertebral soft tissues are normal in thickness. No paravertebral hematomas. No apical pneumothoraces. There is a left-sided pacer. IMPRESSION: Negative for acute fracture. Cervical spine degenerative changes are seen, which are worst inferiorly. There is ossification seen posterior to the C5 and C6 vertebral bodies. Dictated by: Nicolas Sullivan M.D. on 03/01/2025 at 12:02 Approved by: Nicolas Sullivan M.D. on 03/01/2025 at 12:04
--- NOTE | 2025-03-01 12:16 | ED.HEATRA ---
HPI - Head Injury General Chief complaint: Head Injury Stated complaint: WIC; RYLEY t-1, Hit Head Time Seen by Provider: 03/01/25 12:09 Source: patient and family Mode of arrival: Ambulatory History of Present Illness HPI Narrative: 84-year-old gentleman history of high blood pressure, Parkinson's disease, fell today while in his shop he had a mechanical fall tripping over something on the floor but did not lose consciousness. Patient denies headache, dizziness, nausea, vomiting, blurred vision, chest pain, shortness of breath, numbness, tingling down the legs, bowel, or bladder incontinence. He was supposed to walk with a cane as a baseline but is noncompliant in doing so per his . Other than what is stated 14 point review of system is negative. Related Data Home Medications ?Medication ?Instructions ?Recorded ?Confirmed Antihistamine 10 mg PO DAILY 11/04/19 ascorbic acid (vitamin C) 1,000 mg 1 gram PO DAILY 11/04/19 11/04/19 tablet aspirin 81 mg tablet,delayed 81 mg PO DAILY 11/04/19 11/04/19 release (Adult Aspirin Regimen) cholecalciferol (vitamin D3) 25 25 mcg PO DAILY 11/04/19 11/04/19 mcg (1,000 unit) capsule glucosamine-chondroitin 250 mg-200 1 tab PO QPC 11/04/19 11/04/19 mg tablet (Osteo Bi-Flex) [id number] tablet 1 tab PO DAILY 11/04/19 11/04/19 nitroglycerin 0.4 mg sublingual 0.4 mg sublingual ONCE 11/04/19 11/04/19 tablet Previous Rx's ?Medication ?Instructions ?Recorded amoxicillin 875 mg-potassium 1 tab PO BID #10 tabs 11/04/19 clavulanate 125 mg tablet atorvastatin 40 mg tablet 40 mg PO DAILY #90 tabs 12/20/19 metoprolol succinate 25 mg 25 mg PO DAILY #90 tabs 12/20/19 tablet,extended release 24 hr trazodone 50 mg tablet See Rx Instructions .Route 10/14/20 .COMPLEX #90 tabs Allergies Allergy/AdvReac Type Severity Reaction Status Date / Time meclizine (From Antivert) Allergy Unknown Verified 03/01/25 11:59 Review of Systems Review of Systems ROS Unobtainable: All systems reviewed & are unremarkable except as noted in HPI and below Patient History Medical History (Updated 03/01/25 @ 13:49 by Tommy Santo DO) Vision disorder Mumps (~194) Measles (~1943) Chicken pox (~1943) Hearing loss Prostate cancer Gout (~1969) Hemorrhoids Skin cancer, basal cell Coronary artery disease History of heart attack Hyperlipidemia Skin lesion Surgical History (Updated 11/14/19 @ 19:30 by Katie Chinchilla) Anesthesia History of ear surgery (~04/2019) History of surgery History of coronary artery stent placement History of prostatectomy Back pain with history of spinal surgery Family History (Updated 11/14/19 @ 19:30 by Katie Chinchilla) Mother Stroke Father No problems noted. Social History Smoking Status: Never smoker second hand exposure: No alcohol intake: never substance use type: does not use Smoking Status: Never smoker alcohol intake frequency: a few times a week Exam Narrative Exam Narrative: GENERAL: [84] year old patient appears stated age. Well-developed patient, in mild distress. HEAD: Atraumatic. Normocephalic. EYES: Pupils equal round and reactive. Extraocular motions intact. No scleral icterus. No injection or drainage. ENT: Nose without bleeding, purulent drainage. Throat without erythema, tonsillar hypertrophy or exudate. Airway patent. NECK: Trachea midline. Non tender CARDIOVASCULAR: Regular rate and rhythm without murmurs, gallops, or rubs. RESPIRATORY: Clear to auscultation. Breath sounds equal bilaterally. No wheezes, rales, or rhonchi. GASTROINTESTINAL: Abdomen soft, non-tender, nondistended. EXTREMITIES: No edema or joint tenderness. BACK: Nontender without deformity or crepitance. No flank tenderness. NEURO: AOx3. GCS 15 nonfocal neuro exam negative pronator drift SKIN: No rash or erythema of visible areas Initial Vital Signs Initial Vital Signs: Vital Signs Temperature 97.0 F L 03/01/25 11:59 Pulse Rate 59 L 03/01/25 11:59 Respiratory Rate 17 03/01/25 11:59 Blood Pressure 132/63 03/01/25 11:59 Pulse Oximetry 98 03/01/25 11:59 Oxygen Delivery Method Room Air 03/01/25 11:59 Course Orders Ordered: ED Orders 03/01/25 12:15 CT cervical spine wo con Stat CT head/brain wo con Stat CXR [XR chest 2V] Stat Vital Signs Vital signs: Vital Signs - 8 hr 03/01/25 11:59 Temperature 97.0 F L Pulse Rate 59 L Respiratory Rate 17 Blood Pressure 132/63 Pulse Oximetry 98 Oxygen Delivery Method Room Air MDM - Head Injury Imaging Data CT scan - head: Radiologist's Impression: [address] [address] [address] Scan Report Signed Patient: Kadeem Brownlee MR#: [id number] : 1940 Acct:[id number] Age/Sex: 84 / M Date of Service: 03/01/25 Loc: ED Accession Number: [id number] Procedure: CT head/brain wo con Ordering Provider: Tommy Santo D.O. PROCEDURE: CT HEAD/BRAIN WO CON INDICATIONS: trauma TECHNIQUE: Noncontrast 4.5 mm thick angled axial sections acquired from the foramen magnum to the vertex, with coronal and sagittal reformats. For radiation dose reduction, the following was used: automated exposure control, adjustment of mA and/or kV according to patient size. COMPARISON: [facility], CT, CT CERVICAL SPINE WO CON, 03/01/2025, 12:32. [facility], CT, CT HEAD WITHOUT CONTRAST, 11/05/2021, 20:53. FINDINGS: Image quality: Diagnostic. CSF spaces: Basal cisterns are patent. No extra-axial fluid collections. The ventricles are symmetric in size and shape. Brain: There is a small volume of acute intracranial hemorrhage seen along the right falx, medial to the right frontal lobe. This measures 14 x 5 x 7 mm. This cannot be seen the 2021 examination. No intracranial mass effect. There is cerebral volume loss, with resultant ventricular and sulcal prominence. There are periventricular and deep white matter chronic small vessel ischemic changes. There is intracranial internal carotid artery atherosclerosis. Skull and face: Calvarium and visualized facial bones appear intact, without suspicious lesions. Sinuses: Visualized sinuses and mastoids are clear. IMPRESSION: Small volume of acute intracranial hemorrhage seen along the medial aspect the right frontal lobe, adjacent to the falx, which likely represents subarachnoid hemorrhage. Note: Case discussed by telephone with Dr. Santo at 1:01 p.m. [place] time on March 01, 2025. Dictated by: Nicolas Sullivan M.D. on 03/01/2025 at 11:58 Approved by: Nicolas Sullivan M.D. on 03/01/2025 at 12:01 Chest x-ray: Radiologist's Impression: [address] [address] XRay Report Signed Patient: Kadeem Brownlee MR#: [id number] : 1940 Acct:[id number] Age/Sex: 84 / M Date of Service: 03/01/25 Loc: ED Accession Number: [id number] Procedure: XR chest 2V Ordering Provider: Tommy Santo D.O. PROCEDURE: XR CHEST 2V INDICATIONS: trauma TECHNIQUE: 2 views of the chest were acquired. COMPARISON: [facility], , XR CHEST 1V, 08/07/2020, 16:20. FINDINGS: Surgical changes and devices: Left chest wall pacemaker leads are in the region of right atrium and right ventricle. Lungs and pleura: No focal infiltrate. No pleural effusion or pneumothorax. Mediastinum: Mediastinal contours are normal. Heart size is enlarged. Bones and chest wall: No suspicious bony abnormalities. Soft tissues appear unremarkable. IMPRESSION: Cardiomegaly . No acute cardiopulmonary pathology. Dictated by: Filiberto Bernal M.D. on 03/01/2025 at 12:56 Approved by: Filiberto Bernal M.D. on 03/01/2025 at 12:57 MDM Narrative Medical decision making narrative: Vital signs nurse triage note medication list previous ER visits in all imaging studies reviewed. CT scan showed small volume of acute intracranial hemorrhage seen along the medial aspect of the right frontal lobe adjacent to the falx which likely represent subarachnoid hemorrhage. Case discussed with Dr. Seth valdovinos ER doc who has graciously accepted patient at [facility]. Differential diagnosis includes subarachnoid subdural epidural hemorrhage. Patient states he does not take aspirin but is on his medication list. GCS 15 nonfocal neuro exam prior to discharge. Discharge Plan Departure Patient Disposition: [facility] Clinical Impression: Acute spontaneous subarachnoid intracranial hemorrhage Prescriptions: No Action atorvastatin 40 mg tablet 40 mg PO DAILY Qty: 90 3RF metoprolol succinate 25 mg tablet extended release 24 hr 25 mg PO DAILY Qty: 90 3RF trazodone 50 mg tablet See Rx Instructions .ROUTE .COMPLEX Qty: 90 0RF Dose Instruction: TAKE 1 TABLET BY MOUTH DAILY AT BEDTIME FOR INSOMNIA Rx Instructions: TAKE 1 TABLET BY MOUTH DAILY AT BEDTIME FOR INSOMNIA aspirin [Adult Aspirin Regimen] 81 mg tablet,delayed release (DR/EC) 81 mg PO DAILY [id number] Tablet 1 tab PO DAILY glucosamine-chondroitin [Osteo Bi-Flex] 250-200 mg tablet 1 tab PO QPC cholecalciferol (vitamin D3) 25 mcg (1,000 unit) capsule 25 mcg PO DAILY ascorbic acid (vitamin C) 1,000 mg tablet 1 gram PO DAILY Antihistamine 10 mg PO DAILY nitroglycerin 0.4 mg tablet, sublingual 0.4 mg SL ONCE amoxicillin-pot clavulanate 875-125 mg tablet 1 tab PO BID Qty: 10 0RF Referrals: Storm Hanna MD [Primary Care Provider, Family Practice] Stand Alone Forms: Patient Portal/API
--- NOTE | 2025-03-01 14:22 | PC.NURSE ---
Pt states that he had mechanical glf fall in garage. Pt tripped on something on the floor and fell backwards hitting his head. Large skin tear and bruise on the back of head. Pt denies LOC and does not take thinners. Denies any dizziness, lightheaded, vision changes, n/v. Neuro intact. A&Ox4. Hx of parkinsons. Pt encourgaed to use walker or cane at home, but states noncomplaint.
--- NOTE | 2025-03-01 15:47 | PC.NURSE ---
Pt stood at bedside with 1 person assist to use urinal. 250cc clear yellow urine out. Wound dressing placed in field removed and skin tear cleaned with saline & gauze. Nonstick gauze applied and wrapped with kerlix. Pt tolerated well. A&Ox4.
== END 2025-03-01 16:23 | disposition short-term general hospital (02) ==
PROVIDERS: Emergency Provider Family Medicine; PCP Family Medicine
DX: S06.6X0A Traumatic subarachnoid hemorrhage without loss of consciousness, initial encounter (principal); W01.0XXA Fall on same level from slipping, tripping and stumbling without subsequent striking against object, initial encounter
CPT/HCPCS: 70450; 71046; 72125; 99282; 99284

== ENCOUNTER 2025-03-10 22:12 | Emergency (ER) | payer MEDICARE, SELFPAY ==
[2025-03-10 22:18] VITALS: BP 132/60; PULSE 62; RESP 14; TEMP 36.2; O2SAT 97; BMI 27.6
[2025-03-10 22:58] LABS: Alanine Aminotransferase 10 IU/L (<50); Albumin 4.3 g/dL (3.5-5.0); Albumin Globulin Ratio 1.3 (1.0-2.8); Alkaline Phosphatase 94 U/L (38-126); Aspartate Aminotransferase 78 IU/L (17-59); BUN Creatinine Ratio 22.7 (6-22); Bilirubin Total 0.8 mg/dL (0.2-1.3); Blood Urea Nitrogen 25 mg/dL (9-20); Calcium 8.9 mg/dL (8.4-10.2); Carbon Dioxide 28 mmol/L (22-32); Chloride 103 mmol/L (98-107); Estimated Glomerular Filt Rate > 60 mL/min (>60); Globulin 3.4 g/dL (1.7-4.1); Glucose 104 mg/dL (70-99); HEMOLYSIS < 15 (0-50); Potassium 4.2 mmol/L (3.4-5.1); Sodium 138 mmol/L (137-145); Total Protein 7.7 g/dL (6.3-8.2)
[2025-03-10 23:11] LABS: Hematocrit 27.4 % (41-53); Hemoglobin 9.1 g/dL (13.5-17.5); Mean Corpuscular HGB Conc 33.2 % (30-36); Mean Corpuscular Hemoglobin 37.2 PG (26-34); Mean Corpuscular Volume 112.1 fL (80-100); Red Blood Cell Count 2.44 X10^6/uL (4.5-5.9); Red Cell Distribution Width 17.6 % (11.6-14.8); White Blood Cell Count 4.3 X10^3/uL (4.5-11.0)
[2025-03-10 23:22] LABS: Add Manual Diff / Slide Review YES
[2025-03-10 23:26] LABS: Platelet Count 35 X10^3/uL (150-400)
[2025-03-10 23:29] LABS: Anisocytosis 1+; Macrocytosis 2+; Neutrophils Absolute Manual 1892 /uL (3000-5900); Total Cells Counted 100
[2025-03-10 23:35] VITALS: PULSE 61; O2SAT 98
[2025-03-10 23:36] VITALS: BP 133/61; PULSE 61; O2SAT 98
[2025-03-11] VITALS (61 sets, daily range): BP systolic 104–166; BP diastolic 49–80; PULSE 59–90; RESP 15–25; TEMP 36.2–36.6; O2SAT 92–100
--- NOTE | 2025-03-11 00:28 | PC.NURSE ---
Dr. Velarde aware of patient's platelet level when lab called. pt brought back to a room.
--- NOTE | 2025-03-11 02:10 | ED.RECABL ---
HPI - Recheck/Abnormal Lab/Rx General Chief Complaint: Recheck/Abnormal Lab/Rx Stated Complaint: Platelet is down to 37 sent by Time Seen by Provider: 03/11/25 02:09 Source: patient Mode of arrival: Ambulatory History of Present Illness HPI narrative: 84-year-old male with recent fall and transfer from here to [facility] for traumatic subarachnoid hemorrhage, per report of family while at [facility] [place] [id number], no neurosurgical interventions, IV platelets 4 units infusions were given during their hospital stay, goal was initially platelets 239240 [place], [place] [address] [place]. Patient had follow up visit blood draw in clinic yeserday, low platelets reported, advised to come here for further evaluation. No new head injury. No nosebleeds. No black or red stools. No red/dark urine. Denies headache symptoms. Related Data Home Medications ?Medication ?Instructions ?Recorded ?Confirmed Antihistamine 10 mg PO DAILY 11/04/19 ascorbic acid (vitamin C) 1,000 mg 1 gram PO DAILY 11/04/19 11/04/19 tablet aspirin 81 mg tablet,delayed 81 mg PO DAILY 11/04/19 11/04/19 release (Adult Aspirin Regimen) cholecalciferol (vitamin D3) 25 25 mcg PO DAILY 11/04/19 11/04/19 mcg (1,000 unit) capsule glucosamine-chondroitin 250 mg-200 1 tab PO QPC 11/04/19 11/04/19 mg tablet (Osteo Bi-Flex) gssdbfkmnfln-[id number] tablet 1 tab PO DAILY 11/04/19 11/04/19 nitroglycerin 0.4 mg sublingual 0.4 mg sublingual ONCE 11/04/19 11/04/19 tablet Previous Rx's ?Medication ?Instructions ?Recorded amoxicillin 875 mg-potassium 1 tab PO BID #10 tabs 11/04/19 clavulanate 125 mg tablet atorvastatin 40 mg tablet 40 mg PO DAILY #90 tabs 12/20/19 metoprolol succinate 25 mg 25 mg PO DAILY #90 tabs 12/20/19 tablet,extended release 24 hr trazodone 50 mg tablet See Rx Instructions .Route 10/14/20 .COMPLEX #90 tabs Allergies Allergy/AdvReac Type Severity Reaction Status Date / Time meclizine (From Antivert) Allergy Unknown Verified 03/10/25 22:19 Patient History Medical History (Updated 03/11/25 @ 18:59 by Navi Velarde MD) Vision disorder Mumps (~194) Measles (~194) Chicken pox (~194) Hearing loss Prostate cancer Gout (~1969) Hemorrhoids Skin cancer, basal cell Coronary artery disease History of heart attack Hyperlipidemia Skin lesion Surgical History (Updated 11/14/19 @ 19:30 by Katie Chinchilla) Anesthesia History of ear surgery (~04/2019) History of surgery History of coronary artery stent placement History of prostatectomy Back pain with history of spinal surgery Family History (Updated 11/14/19 @ 19:30 by Katie Chinchilla) Mother Stroke Father No problems noted. Social History Smoking Status: Never smoker second hand exposure: No alcohol intake: never substance use type: does not use Smoking Status: Never smoker alcohol intake frequency: a few times a week Exam Narrative Exam Narrative: GENERAL: Well-developed patient, in mild distress. HEAD: Posterior scalp abrasion, dressing not saturated, Xeroform horizontal strips noted which were not removed. No tenderness or redness surrounding. EYES: Pupils equal round and reactive. Extraocular motions intact. No scleral icterus. No injection or drainage. ENT: Nose without bleeding, purulent drainage. Throat without erythema, tonsillar hypertrophy or exudate. Airway patent. Hearing aids worn bilaterally. NECK: Trachea midline. Non tender CARDIOVASCULAR: Regular rate and rhythm without murmurs, gallops, or rubs. RESPIRATORY: Clear to auscultation. Breath sounds equal bilaterally. No wheezes, rales, or rhonchi. GASTROINTESTINAL: Abdomen soft, non-tender, nondistended. EXTREMITIES: No edema or joint tenderness. BACK: Nontender without deformity or crepitance. No flank tenderness. NEURO: AOx3. Motor functions grossly nonfocal. SKIN: No rash or erythema of visible areas Initial Vital Signs Initial Vital Signs: Vital Signs Temperature 97.1 F L 03/10/25 22:18 Pulse Rate 62 03/10/25 22:18 Respiratory Rate 14 03/10/25 22:18 Blood Pressure 132/60 03/10/25 22:18 Pulse Oximetry 97 03/10/25 22:18 Oxygen Delivery Method Room Air 03/10/25 22:18 Course Orders Ordered: ED Orders 03/11/25 17:43 CBC No Diff [Complete Blood Count NO DIFF] Stat Vital Signs Vital signs: Vital Signs - 8 hr 03/11/25 16:00 03/11/25 16:01 03/11/25 16:01 Temperature Pulse Rate 63 68 Respiratory Rate Blood Pressure 112/73 Pulse Oximetry 100 99 Oxygen Delivery Method 03/11/25 16:13 03/11/25 16:29 03/11/25 16:29 Temperature 97.7 F Pulse Rate 78 60 Respiratory Rate 16 Blood Pressure 123/69 138/64 Pulse Oximetry 100 Oxygen Delivery Method 03/11/25 16:30 03/11/25 16:31 03/11/25 16:31 Temperature Pulse Rate 65 63 Respiratory Rate Blood Pressure 125/60 Pulse Oximetry 99 99 Oxygen Delivery Method 03/11/25 16:32 03/11/25 18:14 03/11/25 19:43 Temperature 97.9 F Pulse Rate 64 71 63 Respiratory Rate 16 18 Blood Pressure 125/80 166/70 H Pulse Oximetry 98 99 Oxygen Delivery Method Room Air MDM - Recheck/Abnormal Lab/Rx Lab Data Attestation: I reviewed the patient's lab results. Lab results narrative: White blood cell count 4300, hemoglobin 9.1, platelets 35,000 quite low. Electrolytes unremarkable, BUN 25 with creatinine 1.10 normal renal function, glucose 104. AST slight elevation, other liver functions unremarkable. 03/11/25 17:43 03/10/25 22:36 Labs: Lab Results 03/10/25 03/11/25 03/11/25 Range/Units 22:36 07:04 17:43 WBC 4.3 L 4.1 L (4.5-11.0) X10^3/uL RBC 2.44 L 2.32 L (4.5-5.9) X10^6/uL Hgb 9.1 L 8.7 L (13.5-17.5) g/dL Hct 27.4 L 26.2 L (41-53) % MCV 112.1 H 112.8 H (80-100) fL MCH 37.2 H 37.4 H (26-34) PG MCHC 33.2 33.2 (30-36) % RDW 17.6 H 17.7 H (11.6-14.8) % Plt Count 35 L* 101 L (150-400) X10^3/uL Neut % (Auto) Not Reportable Lymph % (Auto) Not Reportable [place] % (Auto) Not Reportable Eos % (Auto) Not Reportable Baso % (Auto) Not Reportable Lymph # (Auto) Not Reportable [place] # (Auto) Not Reportable Baso # (Auto) Not Reportable Total Counted 100 Seg Neutrophils % 30.0 L (38-70) % Band Neutrophils % 14.0 H (3-7) % Lymphocytes % (Manual) 49.0 H (25-45) % Atypical Lymphs % 2.0 H ( - 0) % Monocytes % (Manual) 3.0 (2-11) % Eosinophils % (Manual) 2.0 (2-4) % Neutrophils # (Manual) 1892 L (6517-3765) /uL RBC Morphology See below Anisocytosis 1+ H Macrocytosis 2+ H PT 14.6 H (9.4-12.5) SECONDS INR 1.3 (0.9-1.3) Sodium 138 (137-145) mmol/L Potassium 4.2 (3.4-5.1) mmol/L Chloride 103 (98-107) mmol/L Carbon Dioxide 28 (22-32) mmol/L BUN 25 H (9-20) mg/dL Creatinine 1.10 (0.66-1.25) mg/dL Estimated GFR > 60 (>60) mL/min BUN/Creatinine Ratio 22.7 H (6-22) Glucose 104 H (70-99) mg/dL Calcium 8.9 (8.4-10.2) mg/dL Total Bilirubin 0.8 (0.2-1.3) mg/dL AST 78 H (17-59) IU/L ALT 10 (<50) IU/L Alkaline Phosphatase 94 (38-126) U/L Total Protein 7.7 (6.3-8.2) g/dL Albumin 4.3 (3.5-5.0) g/dL Globulin 3.4 (1.7-4.1) g/dL Albumin/Globulin Ratio 1.3 (1.0-2.8) Blood Type A Positive MDM Narrative Medical decision making narrative: 84-year-old male with history of recent traumatic subarachnoid hemorrhage, transferred to [facility] from here with no labs drawn here at that time, per there were no neurosurgical interventions at [facility] due to low platelets, given IV platelet transfusions. Had follow up blood draw done today [facility] [place], patient was called later, was told that his platelet count was again low. No new injuries to the head. No headache. CT scan head ordered for comparison. Repeat labs today pending. Platelets 45446 confirmed low, hematology 9.1 diminished from remote labs, none obtained from transfer recent, white blood cell count [address] head noncontrast. Impressions: ?Generalized cerebral atrophy and periventricular hypodensities compatible with chronic small-vessel occlusive disease. No intracranial hemorrhage, mass effect, midline shift, or hydrocephalus is seen. No abnormal extra-axial fluid collections are identified. The visualized paranasal sinuses and mastoid air cell complexes are well aerated bilaterally. Bilateral globes and retrobulbar soft tissues are within normal limits. The calvarium and overlying soft tissues are unremarkable. ? See tele radiology report. Discussed findings with patient. We will reach out to hematology-oncology [facility] where patient has had recent evaluations. Low platelets and lower hemoglobin, no obvious active external bleeding. CT head showed no evidence of intracranial hemorrhage at this time. Goal platelets to be clarified, if patient can be discharged home at current platelet count 36002, or if welding equipment repairer platelets from blood bank outside facility ordered if needed to reach some threshold platelet level. 0500, case discussed with [facility] intake, await call back from hematology oncology. 0600, still awaiting call back from [facility] Hematology-Oncology. We will query [facility] Hematology-Oncology as well. 0620, discussed with [facility] hematology oncology Dr Zhang, advises two six packs and platelet transfusion. Goal platelet transfusion to platelet level [id number] or higher. Can call back post-transfusion to speak with his colleague for follow up plan. We will place order for 6 pack platelets x2 transfusion. 0730, awaiting welding equipment repairer platelets for transfusion with goal platelet count greater than [id number], [facility]. Bullock. 03/11/25, 1900, Syd. Sign-out from Dr. Bullock. Carrier receipt of platelets, had been infused, infusion just completed. Repeat labs pending, goal platelet count greater than 389452. Reassumed care. Platelet count post transfusion [id number]. Hemoglobin slightly lower than previous value, white blood cell count slightly lower than previous value. No obvious external bleeding. We will reconsult with Hematology-Oncology for timing of close follow up, might need bone marrow biopsy. 184, case discussed with [facility] hematology-oncology Dr. Lopez, who took patient name/date of information for close follow up, possible bone marrow biopsy later this week. We will discharge patient home with family. Follow up with Oncology later this week. Return precautions discussed. Discharge Plan Departure Patient Disposition: Home Clinical Impression: Thrombocytopenia, Pancytopenia Instructions: DI for Pancytopenia Activity Restrictions/Additional Instructions: Recent traumatic subarachnoid hemorrhage, transferred to [facility] were low platelet count found last week, IV platelet infusions, discharged home, no neurosurgical interventions. Outpatient lab yesterday showed recurrence of low platelet count. Confirmed yesterday here 35,000. Oncology consulted at [facility], no response from [facility] oncology when initially requested, transfusion of two 6 packs of platelets advised, with goal platelet count of greater than 100,000. Carrier platelets were obtained through the day today, and infused, on repeat CBC testing your platelet count went to 101,000. You did have some small change in decreasing your hemoglobin and also you white blood cell count. It is possible you might be having some pancytopenia problem with your bone marrow, and you might need a bone marrow biopsy in close follow up. Case was discussed with new on-call oncology Dr. Brar, this morning, who is aware of plan, we would like to see them later this week for possible bone marrow biopsy. Prescriptions: No Action atorvastatin 40 mg tablet 40 mg PO DAILY Qty: 90 3RF metoprolol succinate 25 mg tablet extended release 24 hr 25 mg PO DAILY Qty: 90 3RF trazodone 50 mg tablet See Rx Instructions .ROUTE .COMPLEX Qty: 90 0RF Dose Instruction: TAKE 1 TABLET BY MOUTH DAILY AT BEDTIME FOR INSOMNIA Rx Instructions: TAKE 1 TABLET BY MOUTH DAILY AT BEDTIME FOR INSOMNIA aspirin [Adult Aspirin Regimen] 81 mg tablet,delayed release (DR/EC) 81 mg PO DAILY [id number] Tablet 1 tab PO DAILY glucosamine-chondroitin [Osteo Bi-Flex] 250-200 mg tablet 1 tab PO QPC cholecalciferol (vitamin D3) 25 mcg (1,000 unit) capsule 25 mcg PO DAILY ascorbic acid (vitamin C) 1,000 mg tablet 1 gram PO DAILY Antihistamine 10 mg PO DAILY nitroglycerin 0.4 mg tablet, sublingual 0.4 mg SL ONCE amoxicillin-pot clavulanate 875-125 mg tablet 1 tab PO BID Qty: 10 0RF Referrals: Storm Hanna MD [Primary Care Provider, Family Practice] Jose J Lopez MD [Physician, Oncology] Stand Alone Forms: Patient Portal/API
--- NOTE | 2025-03-11 02:22 | DI.CT.S_ITS ---
PROCEDURE: CT HEAD/BRAIN WO CON INDICATIONS: recent SAH, low platelets TECHNIQUE: Noncontrast 4.5 mm thick angled axial sections acquired from the foramen magnum to the vertex, with coronal and sagittal reformats. For radiation dose reduction, the following was used: automated exposure control, adjustment of mA and/or kV according to patient size. COMPARISON: [facility], CT, CT HEAD/BRAIN WO CON, 03/01/2025, 12:32. FINDINGS: Image quality: Diagnostic. CSF spaces: Basal cisterns are patent. No extra-axial fluid collections. The ventricles are symmetric in size and shape. Brain: No intracranial bleeds or mass effect. There is cerebral volume loss, with resultant ventricular and sulcal prominence. There are periventricular and deep white matter chronic small vessel ischemic changes. There is intracranial internal carotid artery atherosclerosis. Skull and face: Calvarium and visualized facial bones appear intact, without suspicious lesions. Sinuses: Visualized sinuses and mastoids are clear. IMPRESSION: No acute intracranial pathology. Findings likely associated with chronic microvascular ischemic change. These findings are concordant with the overnight interpretation. Dictated by: Emily Marie M.D. on 03/11/2025 at 8:20 Approved by: Emily Marie M.D. on 03/11/2025 at 8:22
[2025-03-11 03:48] LABS: INR 1.3 (0.9-1.3); Prothrombin Time 14.6 SECONDS (9.4-12.5)
--- NOTE | 2025-03-11 07:46 | PC.NURSE ---
Pt repositioned in bed, NAD, RA, A&Ox4, breathing even/equal/unlabored at this time. Pt denies headache, CP/SOB at this time. Call light within reach, no other needs at this time
--- NOTE | 2025-03-11 09:34 | PC.NURSE ---
Pt ambulated around department with walker. Pt ambulated with steady gait. Pt sitting on stretcher, RA, NAD, A&Ox4, breathing even/equal/unlabored at this time. Pt updated to delay of getting platelets. Call light within reach, no other needs at this time
--- NOTE | 2025-03-11 12:34 | PC.NURSE ---
Platlets started on pt. Pt verbalized understanding of reactions. Pt sitting on karri, A&Ox4, RA, no distress or reactions noted at this time. Platlets were delayed due to need for platelets to come from [facility]. Call light within reach, no needs at this time
--- NOTE | 2025-03-11 12:53 | PC.NURSE ---
Pt denies pain, rash, headache, back pain, SOB at this time. Call light within reach, RA, NAD, A&Ox4, breathing even/equal/unlabored at this time. No other needs at this time
--- NOTE | 2025-03-11 13:24 | PC.NURSE ---
Pt assisted with standing and stretcher. Pt able to use urinal. Platlets transfusing, pt denies reactions at this time. RA, NAD, A&Ox4, breathing even/equal/unlabored at this time. Call light within reach, no other needs at this time
--- NOTE | 2025-03-11 16:33 | PC.NURSE ---
Pt received 2nd unit of platlets, pt denies any reactions. Pt sitting on stretcher, RA, NAD, A&Ox4, breathing even/equal/unlabored at this time. Call light within reach, no other needs at this time
--- NOTE | 2025-03-11 17:18 | PC.NURSE ---
Pt ambulated around department with steady even gait with walker and THERMAL CUTTER HELPER. Pt updated to need for repeat platlet lab. Pt not in distress at this time, RA, A&Ox4, breathing even/equal/unlabored at this time.. Call light within reach, no needs at this time
[2025-03-11 17:49] LABS: Hematocrit 26.2 % (41-53); Hemoglobin 8.7 g/dL (13.5-17.5); Mean Corpuscular HGB Conc 33.2 % (30-36); Mean Corpuscular Hemoglobin 37.4 PG (26-34); Mean Corpuscular Volume 112.8 fL (80-100); Platelet Count 101 X10^3/uL (150-400); Red Blood Cell Count 2.32 X10^6/uL (4.5-5.9); Red Cell Distribution Width 17.7 % (11.6-14.8); White Blood Cell Count 4.1 X10^3/uL (4.5-11.0)
--- NOTE | 2025-03-11 18:37 | PC.NURSE ---
Dressing changed to pt's wound on back of head. 4x4 gauze and xeroform used. pt tolerated dressing change well. Pt sitting on stretcher, RA, NAD, breathing even/equal/unlabored at this time. Call light within reach, no other needs at this time
== END 2025-03-11 19:50 | disposition home or self-care (01) ==
PROVIDERS: Emergency Medicine; Emergency Provider Emergency Medicine; PCP Family Medicine
DX: D61.818 Other pancytopenia (principal); Z87.820 Personal history of traumatic brain injury
CPT/HCPCS: 36415; 36430; 70450; 80053; 85007; 85025; 85027; 85610; 86900; 86901; 99284; P9035